=== PATIENT | male | born 1955 | race Caucasian/White ===

== ENCOUNTER 2017-06-01 16:24 | Emergency (ER) | payer BC ==
[2017-06-01] MEDS ORDERED: GLUCAGON,HUMAN RECOMB 1 MG INJ SUBCUT PRN (17:10)
[2017-06-01] MEDS ORDERED: MAG HYDROX/AL HYDROX/SIMETH SUSP 30 ML UDCUP PO ONE (17:27)
[2017-06-01] MEDS ORDERED: METOCLOPRAMIDE HCL ORAL SOLN 10 MG/10 ML UDCUP PO ONE (17:27)
[2017-06-01] MEDS ORDERED: LIDOCAINE 2% VISCOUS SOLN 20 ML UDCUP PO ONE (17:27)
--- NOTE | 2017-06-01 17:48 | ER Document Report ---
ED General - General Chief Complaint: Other Stated Complaint: FEELS LIKE "SOMETHING IN THROAT" Time Seen by Provider: 06/01/17 17:10 Mode of Arrival: Ambulatory Information source: Patient Notes: 61 yr old male presents with complaints of piece of meat stuck in his throat. Pt demands a GI cocktail to resolve it. TRAVEL OUTSIDE OF THE [place] IN LAST 30 DAYS: No - HPI Onset: Just prior to arrival Onset/Duration: Sudden Quality of pain: Achy Severity: Mild Pain Level: 1 Associated symptoms: None Exacerbated by: Food Relieved by: Denies Similar symptoms previously: Yes Recently seen / treated by doctor: Yes - Related Data Allergies/Adverse Reactions: No Known Allergies Allergy (Unverified 06/01/17 16:32) Past Medical History - Social History Smoking Status: Current Some Day Smoker Cigarette use (# per day): Yes Chew tobacco use (# tins/day): No Smoking Education Provided: No Frequency of alcohol use: Occasional Drug Abuse: None Family History: Reviewed & Not Pertinent Renal/ Medical History: Denies: Hx Peritoneal Dialysis Surgical Hx: Negative - Immunizations Hx Diphtheria, Pertussis, Tetanus Vaccination: Yes Review of Systems - Review of Systems Notes: REVIEW OF SYSTEMS: CONSTITUTIONAL : Denies fever, chills, or sweats. Denies recent illness. EENT: admis to diffiuclty swallowing CARDIOVASCULAR: Denies chest pain. Denies palpitations or racing or irregular heart beat. Denies ankle edema. RESPIRATORY: Denies cough, cold, or chest congestion. Denies shortness of breath, difficulty breathing, or wheezing. GASTROINTESTINAL: Denies abdominal pain or distention. Denies nausea, vomiting , or diarrhea. Denies blood in vomitus, stools, or per rectum. Denies black, tarry stools. Denies constipation. GENITOURINARY: Denies difficulty urinating, painful urination, burning, frequency, blood in urine, or discharge. MUSCULOSKELETAL: Denies back or neck pain or stiffness. Denies joint pain or swelling. SKIN: Denies rash, lesions or sores. HEMATOLOGIC : Denies easy bruising or bleeding. LYMPHATIC: Denies swollen, enlarged glands. NEUROLOGICAL: Denies confusion or altered mental status. Denies passing out or loss of consciousness. Denies dizziness or lightheadedness. Denies headache. Denies weakness or paralysis or loss of use of either side. Denies problems with gait or speech. Denies sensory loss, numbness, or tingling. Denies seizures. PSYCHIATRIC: Denies anxiety or stress. Denies depression, suicidal ideation, or homicidal ideation. ALL OTHER SYSTEMS REVIEWED AND NEGATIVE. Dictation was performed using [employer] voice recognition software PHYSICAL EXAMINATION: GENERAL: Well-appearing, well-nourished and in no acute distress. HEAD: Atraumatic, normocephalic. EYES: Pupils equal round and reactive to light, extraocular movements intact, sclera anicteric, conjunctiva are normal. ENT: Nares patent, oropharynx clear without exudates. Moist mucous membranes. NECK: Normal range of motion, supple without lymphadenopathy LUNGS: Breath sounds clear to auscultation bilaterally and equal. No wheezes rales or rhonchi. HEART: Regular rate and rhythm without murmurs ABDOMEN: Soft, nontender, nondistended abdomen. No guarding, no rebound. No masses appreciated. pt spitting back every time he swallowing. Musculoskeletal: Normal range of motion, no pitting or edema. No cyanosis. NEUROLOGICAL: Cranial nerves grossly intact. Normal speech, normal gait. Normal sensory, motor exams PSYCH: Normal mood, normal affect. SKIN: Warm, Dry, normal turgor, no rashes or lesions noted. Physical Exam - Vital signs Vitals: Temp Pulse Resp BP Pulse Ox 98.0 F 95 20 140/103 H 94 06/01/17 16:32 06/01/17 16:32 06/01/17 16:32 06/01/17 16:32 06/01/17 16:32 Course - Re-evaluation Re-evalutation: 06/01/17 17:53 Pt does not wish to stay for imaging, explained we do not have GI , failed attempt to resolve with pepsi, gi cocktail and glucagon. I did contact [facility] as we do not have GI. Patient and wish to be discharged immediately so they can go there without a transfer. I explained to them that I will still contact the GI specialist or to make them aware the family wishes to go immediately as they state they have wasted time here Patient is in no respiratory distress is able to speak is able to hold his saliva but does vomit when he tries to eat something 06/01/17 18:36 I did speak with GI specialist Dr. Stewart at [facility] I made him aware the patient is heading over in his direction and he is waiting for the patient in the emergency department - Vital Signs Vital signs: Temp Pulse Resp BP Pulse Ox 98 F 89 18 137/97 H 96 06/01/17 18:04 06/01/17 18:04 06/01/17 18:04 06/01/17 18:04 06/01/17 18:04 Discharge - Discharge Clinical Impression: Esophageal foreign body Qualifiers: Encounter type: initial encounter Qualified Code(s): T18.108A - Unspecified foreign body in esophagus causing other injury, initial encounter Condition: Stable Disposition: HOME, SELF-CARE Additional Instructions: You must go to directly to [facility] for evaluation of your esophageal foreign body Referrals: LUIS FELIPE CASTILLO, [facility] [Primary Care Provider] - Follow up as needed
[2017-06-01 18:04] VITALS: BP 137/97
== END 2017-06-01 18:04 | disposition home or self-care (01) ==
LOC: ER 16:24
DX: T18.108A Unspecified foreign body in esophagus causing other injury, initial encounter (principal); X58.XXXA Exposure to other specified factors, initial encounter; F17.210 Nicotine dependence, cigarettes, uncomplicated
CPT/HCPCS: 99283; 96372; J1610; J3490